=== PATIENT | female | born 1955 | race Caucasian/White ===

== ENCOUNTER 2022-03-12 21:45 | Emergency (ER) | payer MEDICARE ==
[~2022-03-12] VITALS: Ht 165.1 cm; Wt 70.0 kg
[~2022-03-12 21:45] MED LIST: FARXIGA5 MG; FUROSEMIDE20 MG PO; LOSARTAN POTASS50 MG PO; METFORMIN500 M2 PO; METOPROLOL SUCC50 MG PO; ROSUVASTATIN CA20 MG PO; TIZANIDINE4 MG PO; TRAMADOL HCL50 MG PO
[2022-03-12] MEDS ORDERED: ORPHENADRINE100 MG PO (22:32)
[2022-03-12] MEDS ORDERED: VOLTAREN75 MG PO (22:32)
[2022-03-12 22:40] VITALS: BP 132/86
== END 2022-03-12 22:55 | disposition home or self-care (01) ==
LOC: ED 21:45
DX: S39.012A Strain of muscle, fascia and tendon of lower back, initial encounter (principal); M16.12 Unilateral primary osteoarthritis, left hip; I10 Essential (primary) hypertension; E11.9 Type 2 diabetes mellitus without complications; Z79.84 Long term (current) use of oral hypoglycemic drugs; X58.XXXA Exposure to other specified factors, initial encounter